=== PATIENT | male | born 1955 | race Caucasian/White ===

== ENCOUNTER → 2019-08-20 15:09 | Outpatient (CLI) | payer BC, OTHER, SELFPAY ==
[2019-08-20 16:54] LABS: Creatinine, Serum 0.88 mg/dL (0.70-1.30); EST Glomerular Filtration Rate 93 mL/min (>60); Est Glom Filt Rate - Afr Amer 113 mL/min (>60)
== END ==
PROVIDERS: Referring Provider Radiology Radiation Oncology; Visit Provider Radiology Radiation Oncology
DX: Z01.818 Encounter for other preprocedural examination (principal); C61 Malignant neoplasm of prostate
CPT/HCPCS: 36415; 82565

== ENCOUNTER → 2019-08-27 08:00 | Outpatient (CLI) | payer OTHER, BC, SELFPAY ==
[2019-08-27] VITALS (18 sets, daily range): BP systolic 116–141; BP diastolic 85–98; PULSE 83–107; RESP 14–18; O2SAT 94–104; BMI 30.1
--- NOTE | 2019-08-27 06:39 | CT_ITS ---
STUDY: CT CHEST WITH CONTRAST REASON FOR EXAM: Male, 63 years old. Elevated PSA levels. Weight loss. History of prostate carcinoma and brachytherapy. RADIATION DOSAGE (If Supplied By Facility): CTDIvol = ( 24.45 ) mGy, DLP = ( 3314.22 ) mGycm TECHNIQUE: Transaxial imaging was performed following intravenous administration of IV Isovue 300 100. Multiplanar coronal and sagittal images were reformatted. Individualized dose optimization techniques were used for this CT. COMPARISON: None. FINDINGS: Mild increased markings at the lung bases suggestive of scarring. There is no demonstrated pleural abnormality. There are calcifications of the coronary arteries. Normal mediastinum. Normal hilar regions. Normal enhanced pulmonary arteries. There is atherosclerotic calcification of the aortic arch . There are multi-level degenerative changes of the thoracic spine. Small hiatal hernia. CT/Chest WITH Contrast IMPRESSION: Mild linear scarring at the lung bases. Electronically Signed: Joshua Limon, at 9:07 EDT , Service support ,
--- NOTE | 2019-08-27 06:40 | CT_ITS ---
STUDY: CT ABDOMEN AND PELVIS WITH CONTRAST REASON FOR EXAM: Male, 63 years old. Elevated PSA levels. Weight loss. History of prostate cancer and brachytherapy. RADIATION DOSAGE (If Supplied By Facility): CTDIvol = ( 24.45 ) mGy, DLP = ( 3314.22 ) mGycm TECHNIQUE: Transaxial images were obtained from the dome of the diaphragm to the symphysis pubis with oral contrast. IV/Oral Isovue 300 100 was administered. Sagittal and coronal images were reconstructed. Individualized dose optimization techniques were used for this CT. COMPARISON: None. FINDINGS: The visualized lung bases are unremarkable. Coronary artery calcification. Normal liver. Normal gallbladder and extrahepatic biliary system. Normal spleen. Normal pancreas. Normal bilateral adrenal glands. Focal cortical scarring in the upper posterior midportion of the right kidney. There are 2 small adjacent cysts in the upper pole of the left kidney. The larger measures 1.3 cm. 1 cm cyst in the lower pole of the left kidney. Nonobstructive intrarenal calculi in the lower pole of the left kidney. The larger calculus measures 2 mm. There is a small hiatal hernia. Normal small intestine. There are scattered colonic diverticula consistent with diverticulosis. The appendix is visualized and appears normal. There is diffuse atherosclerotic calcification of the abdominal aorta, without a demonstrated aneurysm. Normal inferior vena cava. Normal retroperitoneum. Normal urinary bladder. There is enlargement of the prostate gland. Metallic densities are seen within the prostate. The prostate causes indentation at the bladder base. There is a left-sided inguinal hernia containing adipose tissue. There are degenerative changes of the visualized lumbar spine. 40% loss of height of the T8 [address]/Abdomen/Pelvis WITH Contrast IMPRESSION: Left renal cysts. Nonobstructive calculi in the lower pole of the left kidney. Focal scarring in the posterolateral aspect of the right kidney. Enlargement of the prostate with indentation at the bladder base. Electronically Signed: Joshua Limon, at 9:12 EDT , Service support ,
[2019-08-27] MEDS: Metoprolol Tartrate 5 MG/5 ML Vial IV ×4 (15:25→16:17)
[2019-08-27] MEDS: 0.9% Saline Lock 10 ML Syringe IV (16:18)
--- NOTE | 2019-08-27 16:50 | NURSING ---
sent home via wheelchair with
== END ==
PROVIDERS: Family Provider Internal Medicine; PCP Internal Medicine; Referring Provider Radiology Radiation Oncology; Visit Provider Radiology Radiation Oncology
DX: C61 Malignant neoplasm of prostate (principal); I48.91 Unspecified atrial fibrillation
CPT/HCPCS: 71260; 74177; 93005; Q9967; A4216

== ENCOUNTER → 2019-08-29 09:09 | Outpatient (CLI) | payer OTHER, BC, SELFPAY ==
[2019-08-29 08:05] VITALS: BMI 30.8
--- NOTE | 2019-08-29 09:21 | NM_ITS ---
CLINICAL: 63-year-old male with reported history of carcinoma of the prostate with elevation of the serum PSA level. WHOLE BODY 99m Tc MDP RADIONUCLIDE BONE SCINTIGRAPHY COMPARISON: CT of the chest, abdomen and pelvis reports 08/27/2019 FINDINGS: Following the intravenous administration of 27.6 mCi of 99m Tc MDP, whole body bone images reveal: 1. Increased radiopharmaceutical concentration is identified in the sternoclavicular compartment of the left shoulder, acromioclavicular compartments of both shoulders, bilateral knee articulations, lower cervical spine posteriorly on the right, ninth thoracic vertebra posteriorly on the right, right-left midfoot. 2. The remaining skeletal structures are scintigraphically unremarkable with normal-appearing renal images and urinary bladder activity identified. Enhanced uptake is defined in the bilateral mandible and midline maxilla most consistent with periodontal disease and/or periostitis. NM/Bone Scan Whole Body IMPRESSION: 1. The increase in radiopharmaceutical concentration identified in the bilateral shoulders, right and left knees, cervical and thoracic spine, mid foot bilaterally is commensurate with degenerative arthritis. 2. There is no definitive typical scintigraphic evidence of diffuse axial skeletal metastatic disease on the current examination. Electronically Signed: Chinmay Brown DO at 23:15 EDT Tel , Service support ,
[2019-08-29 10:37] LABS: AST(SGOT) 20 U/L (15-37); Alanine Aminotransfer ALT/SGPT 35 U/L (16-61); Albumin, Serum 3.8 g/dL (3.2-5.0); Alkaline Phosphatase 60 U/L (45-117); Bilirubin, Direct 0.22 mg/dL (0.00-0.30); Cholesterol 134 mg/dL (200); Globulin 3.4 g/dL (2.2-4.2); High Density Lipoprotein 47 mg/dL; Protein, Total 7.2 g/dL (6.4-8.2); Thyroid Stim Hormone (TSH) 0.68 uIU/mL (0.358-3.74); Triglycerides 84 mg/dL; Very Low Density Lipoprotein 17 mg/dL (5-40)
== END ==
PROVIDERS: Internal Medicine Cardiovascular Disease; Family Provider Internal Medicine; PCP Internal Medicine; Referring Provider Radiology Radiation Oncology; Visit Provider Radiology Radiation Oncology
DX: C61 Malignant neoplasm of prostate (principal); E78.5 Hyperlipidemia, unspecified; I48.0 Paroxysmal atrial fibrillation
CPT/HCPCS: 36415; 78306; 80061; 80076; 84443

== ENCOUNTER → 2019-09-25 06:46 | Outpatient (CLI) | payer BC, OTHER, SELFPAY ==
[2019-08-29 08:05] VITALS: BMI 30.8
--- NOTE | 2019-09-25 06:47 | ECHOCS_ITS ---
Reason For Study: ARRHYTHMIA Procedure This was a 2D Doppler, Color Flow transthoracic echocardiogram. The study was technically difficult. Contrast injection was performed. Difficult to assess valves due to heart rate. Exam performed in department. Left Ventricle Normal LV size. Left ventricular systolic function is normal. The estimated ejection fraction is 70 %. No regional wall motion abnormalities noted. Right Ventricle Normal RV size. Normal systolic function. Atria The left atrium is mildly enlarged. Normal right atrium. Mitral Valve Normal mitral valve. Tricuspid Valve Normal tricuspid valve. Trivial tricuspid valve insufficiency. Aortic Valve The aortic valve is not well visualized. Pulmonic Valve Normal pulmonic valve. Great Vessels Normal aortic root. The pulmonary artery is normal size. Normal inferior vena cava. Pericardium/Pleural No pericardial effusion. Medication Diluted definity 3.0ml given slow IV push to enhance endocardial definition. MMode/2D Measurements & Calculations LVIDd: 4.8 cm IVSd: 0.82 cm Ao root diam: 3.5 cm LVIDs: 3.2 cm LVPWd: 0.92 cm RVDd: 2.5 cm FS: 32.7 % LAV(MOD-bp): 56.2 ml LVAd ap4: 28.5 cm2 SV(MOD-sp4): 49.1 ml LAV(MOD-bp) Indexed: 26.1 ml/m2 EDV(MOD-sp4): 78.6 ml LAV(MOD-sp2): 38.2 ml EDV(sp4-el): 81.0 ml LAV(MOD-sp4): 65.8 ml LVAs ap4: 15.4 cm2 ESV(MOD-sp4): 29.5 ml ESV(sp4-el): 29.3 ml EF(MOD-sp4): 62.5 % EF(sp4-el): 63.8 % SV(sp4-el): 51.7 ml LA A4 area: 22.3 cm2 LA dimension(2D): 4.1 cm RA A4 area: 14.6 cm2 Doppler Measurements & Calculations Ao V2 max: 97.4 cm/sec LV V1 max: 98.0 cm/sec PA V2 max: 108.9 cm/sec Ao max P.8 mmHg LV V1 max P.9 mmHg TR max maren: 195.6 cm/sec TR max P.3 mmHg Interpretation Summary Normal LV size. Left ventricular systolic function is normal. The estimated ejection fraction is 70 %. The left atrium is mildly enlarged. Contrast injection was performed. Ordering Physician: Leo Roper Referring Physician: Leo Roper Performed By: Kary Juarez, RUDDYCS, RVT
--- NOTE | 2019-09-25 17:11 | STRESSREP ---
Stress Test Report Exercise myocardial perfusion stress test. 64-year-old man with a history of atrial fibrillation, hypertension, hyperlipidemia. Medications: Apixaban, aspirin, atorvastatin, lisinopril, metoprolol. Stress protocol: Resting EKG demonstrates atrial for ablation with a rate of 116 bpm normal intervals are noted. The patient was initially planned to have an exercise stress test however due to his heart rate a pharmacologic stress test was performed. 0.4 mg of regadenoson was infused per usual protocol the maximum heart rate attained was 166 bpm which was 105% of maximum predicted heart rate the maximum workload was 1 metabolic equivalent. The patient maintained atrial fibrillation throughout the recording. At rest there were nonspecific ST-T wave changes noted with no meet the criteria for ischemia at peak infusion nonspecific ST-T wave changes were noted. The resting blood pressures 126/90 with a final blood pressure 108/78. No clinical angina was noted. Myocardial perfusion protocol. 15.0 mCi of technetium 99m sestamibi was injected at rest. 0.4 mg of adenosine was infused per usual protocol peak infusion 45.0 mCi of technetium 99m sestamibi was injected stress images were obtained stress and rest images were reconstructed and compared in the short axis vertical and horizontal long axis. Gated images was obtained Perfusion SPECT analysis: View of the stress images demonstrate normal uptake of tracer noted in all areas of the myocardium. The resting images similarly demonstrate normal uptake of tracer noted in all areas of myocardium. No areas of reversibility are noted suggest ischemia no previous infarct is noted. Gated SPECT analysis: The gated ejection fraction is noted to be 60%. Conclusion: Normal pharmacologic myocardial perfusion stress test. Preserved ejection fraction.
== END ==
PROVIDERS: Family Provider Internal Medicine; PCP Internal Medicine; Referring Provider Internal Medicine Cardiovascular Disease; Visit Provider Internal Medicine Cardiovascular Disease
DX: I48.0 Paroxysmal atrial fibrillation (principal); I10 Essential (primary) hypertension; I25.10 Atherosclerotic heart disease of native coronary artery without angina pectoris
CPT/HCPCS: 78452; 93017; 93306; A9500; Q9957; A4216; C8929; J2785

== ENCOUNTER → 2019-10-09 11:00 | Outpatient (CLI) | payer BC, OTHER, SELFPAY ==
[2019-10-09 08:39] VITALS: BMI 31.5
[2019-10-09 11:33] LABS: Absolute Lymphocyte Count 2.04 X10^3/uL (0.83-4.51); Absolute Neutrophil Count 4.5 X10^3/uL (2.0-7.7); Basophil# 0.08 X10^3/uL; Eosinophil# 0.23 X10^3/uL; Eosinophils% 2.9 % (0-5); Hematocrit 52.4 % (40-54); Lymphocyte # 2.04 X10^3/ul (4.0); Lymphocyte % 26.1 % (19-41); Mean Corp Hgb Conc 34.4 g/dL (32-36); Mean Corpuscular Hgb 32.2 pg (27.0-32.0); Mean Corpuscular Volume 93.7 fL (80-94); Mean Platelet Vol. 9.7 fl (6.2-12.0); Monocyte# 0.85 X10^3/uL; Monocyte% 10.9 % (0-10); NRBC Flagged by Analyzer 0 % (0-5); Neutrophil # 4.51 X10^3/uL (2.7-7.7); Neutrophil % 57.7 % (47-70); Platelet Count 256 K/mm3 (150-450); RBC Distribution Width CV 12.1 % (11.6-14.6); RBC Distribution Width SD 41.9 fl (35.1-43.9); Red Blood Count 5.59 M/mm3 (4.6-6.2); White Blood Count 7.8 K/mm3 (4.4-11.0)
[2019-10-10 09:14] LABS: Pathologist Review Reviewed
== END ==
PROVIDERS: Family Provider Internal Medicine; PCP Internal Medicine; Referring Provider Internal Medicine Cardiovascular Disease; Visit Provider Internal Medicine Cardiovascular Disease
DX: I48.0 Paroxysmal atrial fibrillation (principal)
CPT/HCPCS: 36415; 85025

== ENCOUNTER 2019-10-15 09:08 | Day surgery (SDC) | payer BC, OTHER, SELFPAY ==
[2019-10-09 08:39] VITALS: BMI 31.5
[2019-10-14 13:32] VITALS: BMI 31.5
[2019-10-15 09:42] LABS: Anion Gap 6 (5-15); BUN 23 mg/dL (7-18); BUN/Creat Ratio 23.3 RATIO (10-20); Chloride 103 mmol/L (98-107); Creatinine, Serum 0.99 mg/dL (0.70-1.30); EST Glomerular Filtration Rate 81 mL/min (>60); Est Glom Filt Rate - Afr Amer 99 mL/min (>60); Estimated Creatinine Clearance 78.86 ml/min; Glucose 145 mg/dL (74-106); Potassium 4.2 mmol/L (3.5-5.1); Sodium Level 135 mmol/L (136-145)
--- NOTE | 2019-10-15 13:16 | CARDIOVERS ---
Cardioversion Cardioversion: DC cardioversion 64-year-old man with a history of persistent atrial fibrillation symptomatic. The patient was brought to the cardiac catheterization lab in the postabsorptive nonsedated state. The patient was seen by Dr. Che of the critical care division. Informed consent was obtained. Anterior-posterior pads were applied. EKG confirmed atrial fibrillation. The patient was administered 100 mg of intravenous propofol and 200 J of synchronized DC cardioversion energy were applied with prompt reversal to sinus rhythm. Patient tolerated the procedure well. Conclusion: Successful DC cardioversion to sinus rhythm from atrial fibrillation. Continue current medical therapy.
--- NOTE | 2019-10-15 14:08 | PCM.OP.PRO ---
Procedure Report Date of Procedure: 10/15/19 CONSCIOUS SEDATION REPORT DATE OF SERVICE: October 15, 2019 BRIEF HISTORY OF PRESENT ILLNESS: The patient is a 64-year-old male who presented to [facility] for elective outpatient cardioversion due to underlying atrial fibrillation. The patient is currently anticoagulated on Eliquis. His last surface echocardiogram revealed an ejection fraction of approximately 70%. The patient is a previous smoker but is never been diagnosed with COPD or asthma. He denies a known history of obstructive sleep apnea. The patient denies any previous anesthetic complications. PHYSICAL EXAMINATION: VITAL SIGNS: Reviewed and were acceptable. GENERAL: The patient is a male, in no apparent distress, speaking in full sentences. HEENT: Normocephalic, atraumatic. Mucous membranes are moist and pink. Good mouth opening noted. Trachea is midline. CHEST: S1, S2 irregularly irregular. No murmurs, rubs or gallops were noted. LUNGS: Clear to auscultation bilaterally without appreciable wheezes, rales or rhonchi. ABDOMEN: Soft, nontender, nondistended. Positive bowel sounds. EXTREMITIES: There is no clubbing, cyanosis or edema. ASA Class: II DESCRIPTION OF PROCEDURE: After confirmation of informed consent, the patient's anesthesia plan was reviewed in detail. Propofol was chosen. Risks and benefits were reviewed and the patient agreed to proceed. At 1258, the patient was given his first bolus of propofol. In total, the patient required 100 mg of propofol to achieve an appropriate level of sedation, after which time, the patient was given a 200 joule synchronized cardioversion by Dr. Roper at the bedside. This was successful in achieving normal sinus rhythm. The patient was monitored until 1312, at which time he reached his baseline mental status and function. The patient tolerated the procedure well. COMPLICATIONS: None ESTIMATED BLOOD LOSS: None RECOMMENDATIONS: Okay to recover in usual fashion. Code Visit 9xxxx: Other Procedure See Report - [id number]
== END 2019-10-15 14:10 | disposition home or self-care (01) ==
LOC: CLSP 09:10
PROVIDERS: Family Provider Internal Medicine; PCP Internal Medicine; Referring Provider Internal Medicine Cardiovascular Disease; Visit Provider Internal Medicine Cardiovascular Disease
DX: I48.0 Paroxysmal atrial fibrillation (principal); I10 Essential (primary) hypertension; E78.5 Hyperlipidemia, unspecified; E11.9 Type 2 diabetes mellitus without complications; E66.9 Obesity, unspecified; Z68.31 Body mass index [BMI] 31.0-31.9, adult; Z85.46 Personal history of malignant neoplasm of prostate; Z87.442 Personal history of urinary calculi; Z79.01 Long term (current) use of anticoagulants; Z79.84 Long term (current) use of oral hypoglycemic drugs; Z79.899 Other long term (current) drug therapy; Z87.891 Personal history of nicotine dependence
CPT/HCPCS: 36415; 80048; 92960; 93005; J7040

== ENCOUNTER → 2019-11-01 08:34 | Outpatient (CLI) | payer BC, OTHER, SELFPAY ==
[2019-10-16 14:22] VITALS: BMI 32.7
--- NOTE | 2019-10-31 | IMM_PTH ---
PATIENT: MAMTA RIVERA LOC: [facility] U#:[id number] AGE/SX: 70/M ROOM: RE11/01/[address]: Dr. Donald Hong MD : 1955 BED: DIS: SPEC #: [id number] RECD: 11/04/19 12:01 STATUS: HAYLEY REMassiel #: [id number] TIERRA: 10/31/19 00:[address]: Donald Hong DEPT: IMMUNOHISTOCHEMISTRY RECD BY: Sonya Plaza ENTERED: 11/04/19 12:03 SP TYPE: IMMUNO OTHR DR: Dr. Kay Tyler MD Tissues: PROSTATE BIOPSY Procedures: CK8 (initial) CK8 (add) 34BE12 (add) P40 (add) PHYSICIAN & INSTITUTION [place] [id number] SPECIMEN INFORMATION: Tissue Source: A. Right apex, B. Right mid, C. Right base, D. Left apex Clinical Info: Prostate cancer Specimen Number: [id number] A, B, C, D CPT code: 77068, 42016 x11 METHODOLOGY: Deparaffinized sections of prefer/formalin-fixed tissue or PAP/DQ stained slides are incubated with monoclonal/polyclonal antibodies/oligonucleotide probes. Localization is made via biotin free immunoperoxidase method. Appropriate controls are performed and reacted as expected. Results on target cell population are indicated in the following table: RESULTS: ANTIBODY / CLONE RESULT Block A CK8 ([id number]) positive 34BE12 (34BE12) negative P40 (BC28) negative Block B CK8 (21ishuA75) positive 34BE12 (34BE12) positive P40 (BC28) positive Block C CK8 (55ishxN09) positive 34BE12 (34BE12) positive P40 (BC28) positive Block D CK8 (26sewuC15) positive 34BE12 (34BE12) positive P40 (BC28) positive These tests were developed and their performance characteristics determined by [facility]. They may not have been cleared or approved by the U.S. Food and Drug Administration. The FDA has determined that such clearance or approval is not necessary. The above immunohistochemical/dualISH markers are ordered and reviewed by the Pathologist. INTERPRETATION: A. Prostate, right apex, core biopsy: Adenocarcinoma B. Prostate, right mid, core biopsy: Negative for adenocarcinoma C. Prostate, right base, core biopsy; Negative for adenocarcinoma D. Prostate, left apex, core biopsy: Negative for adenocarcinoma Case has been reviewed in consultation with Dr. Woody who concurs with the above diagnosis. IDC:[email or web address] SJ:cc 11/06/19
--- NOTE | 2019-10-31 08:30 | PROSBIL_PTH ---
PATIENT: MAMTA RIVERA LOC: [facility] U#:[id number] AGE/SX: 70/M ROOM: RE11/01/[address]: Dr. Donald Hong MD : 1955 BED: DIS: SPEC #: [id number] RECD: 10/31/19 17:35 STATUS: [facility] NICOLE #: [id number] TIERRA: 10/31/19 08:[address]: Donlad Hong DEPT: SURGICAL PATHOLOGY RECD BY: Sonya Plaza ENTERED: 11/01/19 09:39 SP TYPE: PROST BX SAMEER DR: Dr. Kay Tyler MD Tissues: A - PROSTATE RIGHT B - PROSTATE RIGHT C - PROSTATE RIGHT D - PROSTATE LEFT E - PROSTATE LEFT F - PROSTATE LEFT Procedures: PROSTATE BX HEADER OPERATION: Prostate biopsy PRE-OP DIAGNOSIS: Prostate cancer TISSUE SUBMITTED: A-Right apex, B-Right mid, C-Right base, D-Left apex, E-Left mid, F-Left base MICROSCOPIC DIAGNOSIS A. Right prostate, apex, core biopsy: Prostatic adenocarcinoma, Jen grade: See comment. Number of core involved: 2/2. Proportion of tissue involved : 20%. Perineural invasion: not identified. Greatest tumor length: 0.4 cm. Focal calcification. See Comment. B. Right prostate, mid, core biopsy: Prostatic tissue, negative for adenocarcinoma. Focal chronic inflammation and calcification. See comment. C. Right prostate, base, core biopsy: Prostatic tissue, negative for adenocarcinoma. See comment.. D. Left prostate, apex, core biopsy: Prostatic tissue, negative for adenocarcinoma. See comment. E. Left prostate, mid, core biopsy: Prostatic adenocarcinoma. Jen grade 7 (4+3) Number of core involved: 2/2 Proportion of tissue involved: about 75%. Perineural invasion: present. Greatest tumor length: 0.7 cm. F. Left prostate, base, core biopsy: Prostatic adenocarcinoma. Jen grade: 7 (4+3) Number of core involved: 2/2 Proportion of tissue involved: about 75% Perineural invasion - present. Greatest tumor length: 0.8 cm MARY:yoselin 11/04/19 COMMENT A, B, C & D: Immunohistochemistry ([id number]) supports the above diagnosis. A. Tumor consists of scant malignant glands. Extensive fibrosis is noted may represent therapy-related changes. B & C. Extensive fibrosis is noted may represent therapy related changes. Please make reference to previous specimen [id number], right prostate needle core biopsy, diagnosis of atypical small acinar proliferation left prostate, and left prostate, needle core biopsy, diagnosis of adenocarcinoma. Case has been reviewed in consultation with Dr. Woody who concurs with the above diagnosis. IDC:AM MICROSCOPIC DESCRIPTION Slides are reviewed. GROSS DESCRIPTION A - Received is one container designated prostate, right apex. The specimen consists of two elongated fragments of light rgaham-white soft tissue each measuring 1 cm in length and 0.1 cm in diameter. The specimen is totally submitted in one cassette. B - Received is one container designated prostate, right mid. The specimen consists of two elongated fragments of light graham-white soft tissue each measuring 1.5 cm in length and 0.1 cm in diameter. The specimen is totally submitted in one cassette. C - Received is one container designated prostate, right base. The specimen consists of two elongated fragments of light graham-white soft tissue each measuring 2 cm in length and 0.1 cm in diameter. The specimen is totally submitted in one cassette. D - Received is one container designated prostate, left apex. The specimen consists of two elongated fragments of light graham-white soft tissue each measuring 1 cm in length and 0.1 cm in diameter. The specimen is totally submitted in one cassette. E - Received is one container designated prostate, left mid. The specimen consists of two elongated fragments of light graham-white soft tissue each measuring 1.5 cm in length and 0.1 cm in diameter. The specimen is totally submitted in one cassette. F - Received is one container designated prostate, left base. The specimen consists of two elongated fragments of light graham-white soft tissue each measuring 1.5 cm in length and 0.1 cm in diameter. The specimen is totally submitted in one cassette. / AM:sp 11/01/19 TC: 0 [facility]: [id number] x6 ADDENDUM ADDENDUM ADDENDUM ADDENDUM ADDENDUM ADDENDUM ADDENDUM ADDENDUM ADDENDUM ADDENDUM ADDENDUM ADDENDUM ADDENDUM ADDENDUM ADDENDUM ADDENDUM ADDENDUM ADDENDUM ADDENDUM ADDENDUM ADDENDUM ADDENDUM ADDENDUM ADDENDUM ADDENDUM ADDENDUM ADDENDUM ADDENDUM ADDENDUM ADDENDUM ADDENDUM ADDENDUM 12/09/2019 10:05 ADDENDUM 12/09/2019 10:05 ADDENDUM 12/09/2019 10:05 ADDENDUM 12/09/2019 10:05 ADDENDUM 12/09/2019 10:05 This addendum is added to incorporate an outside pathology consultation report. The case was examined at [facility] (#[id number]) and the following diagnosis was rendered. A. Right prostate, apex, core biopsy: Adenocarcinoma of the prostate, Jen score 3+4=7 (Grade Group 2), involving two of two cores (15%, 1.5 mm and 40%, 4 mm). [place] pattern 4 comprises 5% of the tumor. Background prostatic tissue with radiation therapy effect. B. Right prostate, mid, core biopsy: Benign prostatic tissue with radiation therapy effect. C. Right prostate, base, core biopsy: Small focus of atypical glands. Background prostatic tissue with radiation therapy effect. D. Left prostate, apex, core biopsy: Benign prostatic tissue with radiation therapy effect. E. Left prostate, mid, core biopsy: Adenocarcinoma of the prostate, [place] score 3+4=7 (Grade Group 2), involving two of two cores (30%, 4.5 mm and 25%, 2.5 mm). Jen pattern 4 comprises 40% of the tumor. Perineural invasion is identified. Background prostatic tissue with radiation therapy effect. F. Left prostate, base, core biopsy: Adenocarcinoma of the prostate, [place] score 3+4=7 (Grade Group 2), involving two of two cores (75%, 7 mm and 75%, 6 mm). Jen pattern 4 comprises 40% of the tumor. Perineural invasion is identified. Background prostatic tissue with radiation therapy effect. Please see complete above mentioned consultation report in EMR
== END ==
PROVIDERS: Family Provider Internal Medicine; PCP Internal Medicine; Referring Provider Urology; Visit Provider Urology
DX: C61 Malignant neoplasm of prostate (principal)
CPT/HCPCS: 88305; 88341; 88342; G0416

== ENCOUNTER 2019-11-25 11:06 | Day surgery (SDC) | payer BC, OTHER, SELFPAY ==
[2019-11-12 11:18] VITALS: BMI 33.3
[2019-11-14 17:52] LABS: Anion Gap 7 (5-15); BUN 19 mg/dL (7-18); BUN/Creat Ratio 15.4 RATIO (10-20); Calcium,Total 9.7 mg/dL (8.5-10.1); Chloride 105 mmol/L (98-107); Creatinine, Serum 1.23 mg/dL (0.70-1.30); EST Glomerular Filtration Rate 63 mL/min (>60); Est Glom Filt Rate - Afr Amer 76 mL/min (>60); Glucose 122 mg/dL (74-106); Potassium 3.9 mmol/L (3.5-5.1); Sodium Level 141 mmol/L (136-145)
[2019-11-22 13:09] VITALS: BMI 33.3
--- NOTE | 2019-11-25 12:28 | CARDIOVERS ---
Cardioversion Cardioversion: DC cardioversion. 64-year-old man with a history of persistent atrial fibrillation. The patient was brought into the cardiac catheterization lab in the postabsorptive nonsedated state. Informed consent was obtained. The patient was seen by Dr. Che of the critical care division. Anterior-posterior pads were applied. 100 mg of intravenous propofol was then administered and then 200 J of synchronized DC cardioversion energy were applied with prompt reversal to sinus rhythm. Patient tolerated the procedure well. Conclusion: Successful DC cardioversion from atrial fibrillation to sinus rhythm. Continue current medical therapy Follow-up in the heart group office.
--- NOTE | 2019-11-25 12:35 | PCM.OP.PRO ---
Procedure Report Date of Procedure: 11/25/19 CONSCIOUS SEDATION REPORT DATE OF SERVICE: November 25, 2019 BRIEF HISTORY OF PRESENT ILLNESS: The patient is a 64-year-old male who presented to [facility] for elective outpatient cardioversion due to underlying atrial fibrillation. The patient is currently anticoagulated on Eliquis. His last surface echocardiogram revealed an ejection fraction of approximately 70%. The patient is a previous smoker but is never been diagnosed with COPD or asthma. He denies a known history of obstructive sleep apnea. The patient denies any previous anesthetic complications. The patient did undergo a previous cardioversion in September 2019, during which time, he did require 100 mg of propofol to achieve an appropriate level of sedation. PHYSICAL EXAMINATION: VITAL SIGNS: Reviewed and were acceptable. GENERAL: The patient is a male, in no apparent distress, speaking in full sentences. HEENT: Normocephalic, atraumatic. Mucous membranes are moist and pink. Good mouth opening noted. Trachea is midline. MP III CHEST: S1, S2 irregularly irregular. No murmurs, rubs or gallops were noted. LUNGS: Clear to auscultation bilaterally without appreciable wheezes, rales or rhonchi. ABDOMEN: Soft, nontender, nondistended. Positive bowel sounds. EXTREMITIES: There is no clubbing, cyanosis or edema. ASA Class: II DESCRIPTION OF PROCEDURE: After confirmation of informed consent, the patient's anesthesia plan was reviewed in detail. Propofol was chosen. Risks and benefits were reviewed and the patient agreed to proceed. At 1221, the patient was given his first bolus of propofol. In total, the patient required 100 mg of propofol to achieve an appropriate level of sedation, after which time, the patient was given a 200 joule synchronized cardioversion by Dr. Roper at the bedside. This was successful in achieving normal sinus rhythm. The patient was monitored until 1232, at which time he reached his baseline mental status and function. The patient tolerated the procedure well. COMPLICATIONS: None ESTIMATED BLOOD LOSS: None RECOMMENDATIONS: Okay to recover in usual fashion. Code Visit 9xxxx: Other Procedure See Report - [id number]
== END 2019-11-25 13:24 | disposition home or self-care (01) ==
PROVIDERS: Nurse Practitioner Family; Family Provider Internal Medicine; PCP Internal Medicine; Referring Provider Internal Medicine Cardiovascular Disease; Visit Provider Internal Medicine Cardiovascular Disease
DX: I48.19 Other persistent atrial fibrillation (principal); E11.9 Type 2 diabetes mellitus without complications; I10 Essential (primary) hypertension; E78.5 Hyperlipidemia, unspecified; G47.10 Hypersomnia, unspecified; Z79.01 Long term (current) use of anticoagulants; Z79.84 Long term (current) use of oral hypoglycemic drugs; Z79.899 Other long term (current) drug therapy; Z87.891 Personal history of nicotine dependence
CPT/HCPCS: 36415; 80048; 92960; 93005; J7040

== ENCOUNTER → 2019-12-05 06:18 | Outpatient (CLI) | payer BC, OTHER, SELFPAY ==
[2019-11-22 13:09] VITALS: BMI 33.3
[2019-12-03 10:35] VITALS: BMI 33.3
--- NOTE | 2019-12-05 06:32 | MRI_ITS ---
STUDY: MR PELVIS WITH AND WITHOUT CONTRAST (PROSTATE) REASON FOR EXAM: Male, 64 years old. prostate ca, hx radiation seeds implanted 6 years ago, new biopsy 2 wks ago TECHNIQUE: Standardized multiparametric prostate MRI with T1, T2, DWI/ADC sequences were obtained in 3 orthogonal planes, and dynamic contrast enhancement sequences. 20 ml of Dotarem contrast material was administered intravenously for the contrast portion of the examination. COMPARISON: None. FINDINGS: The prostate volume measures 71 mm3. The contours of the prostate gland are lobulated. There is mass effect on the bladder base. Metallic prostate implants identified causing expected artifact, degrading sensitivity of exam. The transition zone is heterogenous. PI-RADS DWI score 3 - Focal mildly hypointense on ADC and isointense/mildly hyperintense on high b-value DWI. (Image 16 series 901; image 45 series 9) PI-RADS T2W score 3 - Heterogeneous signal intensity with obscured margins (image 15 series 6, 9 mm right posterior transitional zone, base). Contrast enhancement (+) Focal, earlier or contemporaneous with enhancement of adjacent normal prostatic tissues, and corresponding to a suspicious finding on T2WI and/or DWI. The peripheral zone is heterogenous. PI-RADS DWI score 2 - Linear/wedge shaped hypointense on ADC and/or linear/wedge shaped hyperintense on high b-value DWI. PI-RADS T2W score 2 - Linear, wedge-shaped, or diffuse mild hypointensity, usually with indistinct margin. Contrast enhancement no early or contemporaneous enhancement; or diffuse multifocal enhancement NOT corresponding to a focal finding on T2W and/or DWI or focal enhancement responding to a lesion demonstrating features of BPH onT2WI (including features of extruded BPH in the PZ). The seminal vesicles demonstrate normal margins and T2 signal pattern. No mass lesion or invasion depicted. The rectoprostatic angles are normal. Although the urinary bladder is not well-distended, there appears to be circumferential wall thickening of the urinary bladder with trabecular mucosal features. The vascular structures of the are normal. The visualized hollow viscus structures are normal. No bone marrow edema or mass lesion depicted. MRI/Pelvis W/WO Contrast IMPRESSION: 1. PIRADS v2.1 2019 -- 3 - Intermediate (clinically significant cancer is equivocal). Sensitivity of exam diminished by presence of prostate radiation seeds. Ill-defined area of diminished T2 signal intensity in the right posterior transitional zone (base) with low level restricted diffusion and minimal, but focal, enhancement. May represent sequela of recent biopsy or localized prostatitis, however, a small neoplasm cannot be excluded. 2. No pelvic/iliac chain or inguinal adenopathy. No bone marrow edema. 3. Probable bladder wall thickening with trabeculation suggesting sequela of bladder outlet obstruction. Electronically Signed: Philip Ochoa MD ([facility]) at 11:52 EST , Service support ,
== END ==
PROVIDERS: Family Provider Internal Medicine; PCP Internal Medicine
DX: C61 Malignant neoplasm of prostate (principal)
CPT/HCPCS: 72197; A9575

== ENCOUNTER → 2020-02-14 19:49 | Outpatient (CLI) | payer BC, OTHER, SELFPAY ==
[2020-01-31 08:55] VITALS: BMI 33.6
== END ==
PROVIDERS: PCP Internal Medicine; Referring Provider Internal Medicine Critical Care Medicine; Visit Provider Internal Medicine Critical Care Medicine
DX: G47.33 Obstructive sleep apnea (adult) (pediatric) (principal)
CPT/HCPCS: 95811

== ENCOUNTER → 2020-03-10 09:00 | Outpatient (CLI) | payer BC, OTHER, SELFPAY ==
[2020-02-19 08:51] VITALS: BMI 34.4
== END ==
PROVIDERS: PCP Internal Medicine; Referring Provider Nurse Practitioner Acute Care; Visit Provider Nurse Practitioner Acute Care
DX: Z46.89 Encounter for fitting and adjustment of other specified devices (principal)

== ENCOUNTER → 2020-03-11 09:20 | Outpatient (CLI) | payer BC, OTHER, SELFPAY ==
[2020-02-19 08:51] VITALS: BMI 34.4
== END ==
PROVIDERS: PCP Internal Medicine; Referring Provider Nurse Practitioner Acute Care; Visit Provider Nurse Practitioner Acute Care
DX: Z00.00 Encounter for general adult medical examination without abnormal findings (principal)

== ENCOUNTER → 2020-06-04 09:39 | Outpatient (CLI) | payer OTHER, SELFPAY ==
[2020-06-02 09:31] VITALS: BMI 33.4
--- NOTE | 2020-06-04 09:41 | CT_ITS ---
STUDY: CT CHEST WITHOUT CONTRAST REASON FOR EXAM: Male, 64 years old. LEFT LOWER LOBE LUNG NODULE SEEN ON PRE-OP SCAN FROM [facility], HEART ABLATION 05/28/20 WITH LOOP RECORDER PLACEMENT RADIATION DOSAGE (If Supplied By Facility): CTDIvol = ( 18.59 ) mGy, DLP = ( 710.72 ) mGycm TECHNIQUE: Transaxial imaging was performed without the administration of intravenous contrast material. Multiplanar coronal and sagittal images were reformatted. Individualized dose optimization techniques were used for this CT. COMPARISON: None. FINDINGS: There is a 1.2 cm x 0.9 cm pleural-based nodule in the posterior medial segment of the right lower lobe as seen on axial image #79. This was not seen on prior examination. This may represent a focal area of the scarring. A follow-up CT scan in 6 months is recommended for further evaluation. There is a 1 cm bulla in the left lower lobe. Minimal scarring in the posterior aspect of the lingula segment of the left upper lobe as well as linear scarring in the posterior medial segment of the left lower lobe. There is no demonstrated pleural abnormality. There are calcifications of the coronary arteries. There are multiple small lymph nodes within the mediastinum, which are normal in size and morphology most compatible with reactive lymph hyperplasia. Normal hilar regions. Normal unenhanced pulmonary arteries. There is atherosclerotic calcification of the aortic arch . There are multi-level degenerative changes of the thoracic spine. There is no demonstrated abnormality of the visualized upper abdomen. CT/Chest without Contrast IMPRESSION: 1.2 cm x 0.9 sign of pleural based nodule in the posterior medial segment of the right lower lobe. This may represent a focal scarring. A follow-up CT scan in 6 months is recommended for further evaluation. The remainder of the examination is unchanged. Electronically Signed: Joshua Limon, at 13:44 EDT , Service support ,
== END ==
PROVIDERS: PCP Internal Medicine; Referring Provider Internal Medicine Critical Care Medicine; Visit Provider Internal Medicine Critical Care Medicine
DX: R91.1 Solitary pulmonary nodule (principal)
CPT/HCPCS: 71250

== ENCOUNTER → 2020-06-08 23:42 | Outpatient (CLI) | payer OTHER, BC, SELFPAY ==
[2020-06-02 09:31] VITALS: BMI 33.4
== END ==
PROVIDERS: PCP Internal Medicine; Visit Provider Internal Medicine Critical Care Medicine
DX: G47.30 Sleep apnea, unspecified (principal)
CPT/HCPCS: 95811

== ENCOUNTER → 2020-06-22 09:00 | Outpatient (CLI) | payer BC, OTHER, SELFPAY ==
[2020-06-02 09:31] VITALS: BMI 33.4
== END ==
PROVIDERS: PCP Internal Medicine; Visit Provider Nurse Practitioner Acute Care
DX: Z46.89 Encounter for fitting and adjustment of other specified devices (principal)

== ENCOUNTER → 2020-06-23 06:57 | Outpatient (CLI) | payer BC, OTHER, SELFPAY ==
[2020-06-02 09:31] VITALS: BMI 33.4
== END ==
PROVIDERS: PCP Internal Medicine; Visit Provider Nurse Practitioner Acute Care
DX: Z00.00 Encounter for general adult medical examination without abnormal findings (principal)

== ENCOUNTER → 2020-09-16 10:01 | Outpatient (CLI) | payer BC, SELFPAY ==
[2020-07-30 06:45] VITALS: BMI 33.0
[2020-09-16 11:14] LABS: AST(SGOT) 93 U/L (15-37); Alanine Aminotransfer ALT/SGPT 119 U/L (16-61); Albumin, Serum 3.9 g/dL (3.2-5.0); Alkaline Phosphatase 53 U/L (45-117); Anion Gap 10 (5-15); BUN 15 mg/dL (7-18); BUN/Creat Ratio 18.1 RATIO (10-20); Chloride 103 mmol/L (98-107); Cholesterol 129 mg/dL (200); Creatinine, Serum 0.83 mg/dL (0.70-1.30); EST Glomerular Filtration Rate 100 mL/min (>60); Est Glom Filt Rate - Afr Amer 121 mL/min (>60); Globulin 3.9 g/dL (2.2-4.2); Glucose 160 mg/dL (74-106); High Density Lipoprotein 47 mg/dL; Potassium 3.8 mmol/L (3.5-5.1); Protein, Total 7.8 g/dL (6.4-8.2); Sodium Level 136 mmol/L (136-145); Triglycerides 141 mg/dL; Very Low Density Lipoprotein 28 mg/dL (5-40)
[2020-09-16 11:22] LABS: Hemoglobin A1c 6.8 % (3.8-5.6)
== END ==
PROVIDERS: PCP Internal Medicine; Referring Provider Urology; Visit Provider Urology
DX: C61 Malignant neoplasm of prostate (principal); I48.91 Unspecified atrial fibrillation; R94.5 Abnormal results of liver function studies; E11.59 Type 2 diabetes mellitus with other circulatory complications; E78.1 Pure hyperglyceridemia; E78.2 Mixed hyperlipidemia
CPT/HCPCS: 36415; 80053; 80061; 83036; 84153

== ENCOUNTER → 2020-10-07 07:01 | Outpatient (CLI) | payer BC, SELFPAY ==
[2020-09-24 12:03] VITALS: BMI 33.4
--- NOTE | 2020-10-07 07:02 | CT_ITS ---
STUDY: CT CHEST WITHOUT CONTRAST REASON FOR EXAM: Male, 65 years old. F/U NODULE RLL. Hx of prostate cancer, diabetes, HTN and cardiac ablation with internal monitor RADIATION DOSAGE (If Supplied By Facility): CTDIvol = ( 17.34 ) mGy, DLP = ( 654.29 ) mGycm TECHNIQUE: Transaxial imaging was performed without the administration of intravenous contrast material. Multiplanar coronal and sagittal images were reformatted. Individualized dose optimization techniques were used for this CT. COMPARISON: Comparison is made with prior study dated 06/04/2020. FINDINGS: The previously seen pleural-based nodule in the posterior medial segment of the right lower lobe is not seen at this time. Stable 1 cm bulla in the left lower lobe. Minimal scarring in the anterior lateral portion of the lingula. There is no demonstrated pleural abnormality. There are calcifications of the coronary arteries. There are multiple small lymph nodes within the mediastinum, which are normal in size and morphology most compatible with reactive lymph hyperplasia. Normal hilar regions. Normal unenhanced pulmonary arteries. There is atherosclerotic calcification of the aortic arch . There are multi-level degenerative changes of the thoracic spine. Diffuse fatty infiltration of the liver. CT/Chest without Contrast IMPRESSION: The previously seen pleural-based nodule in the posterior medial segment of the right lower lobe is not seen at this time. Electronically Signed: Joshua Limon, at 8:54 EST , Service support ,
== END ==
PROVIDERS: PCP Internal Medicine; Referring Provider Internal Medicine Critical Care Medicine; Visit Provider Internal Medicine Critical Care Medicine
DX: R91.1 Solitary pulmonary nodule (principal)
CPT/HCPCS: 71250

== ENCOUNTER → 2021-01-11 | Outpatient (CLI) | payer BC, SELFPAY ==
[2020-11-05 10:58] VITALS: BMI 33.3
== END | disposition home or self-care (01) ==
LOC: LABSPEC 12:32
PROVIDERS: PCP Internal Medicine; Referring Provider Urology; Visit Provider Urology
DX: R35.0 Frequency of micturition (principal)
CPT/HCPCS: 87077; 87086; 87088; 87186

== ENCOUNTER → 2021-02-15 16:57 | Outpatient (CLI) | payer BC, SELFPAY ==
[2020-11-05 10:58] VITALS: BMI 33.3
== END ==
PROVIDERS: PCP Internal Medicine; Referring Provider Nurse Practitioner Adult Health; Visit Provider Nurse Practitioner Adult Health
DX: R30.0 Dysuria (principal)
CPT/HCPCS: 87077; 87086; 87088; 87186

== ENCOUNTER → 2021-03-16 09:38 | Outpatient (CLI) | payer BC, SELFPAY ==
[2020-11-05 10:58] VITALS: BMI 33.3
[2021-03-16 11:04] LABS: ALB/GLOB Ratio 0.8 RATIO (0.9-2.4); AST(SGOT) 37 U/L (15-37); Alanine Aminotransfer ALT/SGPT 45 U/L (16-61); Albumin, Serum 3.6 g/dL (3.2-5.0); Alkaline Phosphatase 61 U/L (45-117); Anion Gap 8 (5-15); BUN 17 mg/dL (7-18); BUN/Creat Ratio 18.9 RATIO (10-20); Bilirubin, Direct 0.21 mg/dL (0.00-0.30); Calcium,Total 9.3 mg/dL (8.5-10.1); Chloride 98 mmol/L (98-107); Cholesterol 134 mg/dL (200); EST Glomerular Filtration Rate 90 mL/min (>60); Est Glom Filt Rate - Afr Amer 109 mL/min (>60); Globulin 4.3 g/dL (2.2-4.2); Glucose 330 mg/dL (74-106); High Density Lipoprotein 39 mg/dL; Potassium 3.9 mmol/L (3.5-5.1); Protein, Total 7.9 g/dL (6.4-8.2); Sodium Level 132 mmol/L (136-145); Triglycerides 210 mg/dL; Very Low Density Lipoprotein 42 mg/dL (5-40)
[2021-03-16 11:28] LABS: Hemoglobin A1c 9.3 % (3.8-5.6)
== END ==
PROVIDERS: Internal Medicine Cardiovascular Disease; PCP Internal Medicine; Referring Provider Internal Medicine; Visit Provider Internal Medicine
DX: C61 Malignant neoplasm of prostate (principal); E78.1 Pure hyperglyceridemia; E78.2 Mixed hyperlipidemia; E11.69 Type 2 diabetes mellitus with other specified complication
CPT/HCPCS: 36415; 80053; 80061; 82043; 82248; 83036; 84153

== ENCOUNTER → 2021-04-08 09:45 | Outpatient (CLI) | payer BC, SELFPAY ==
[2021-03-25 09:16] VITALS: BMI 32.7
--- NOTE | 2021-04-08 10:05 | CT_ITS ---
STUDY: CT ABDOMEN AND PELVIS WITHOUT CONTRAST REASON FOR EXAM: Male, 65 years old. GROSS HEMATURIA,CALCULUS OF KIDNEY,OTHER CHRONIC CYSTITIS W/MONICA RADIATION DOSAGE (If Supplied By Facility): CTDIvol = ( 19.18 ) mGy, DLP = ( 1164.60 ) mGycm TECHNIQUE: Transaxial images were obtained from the dome of the diaphragm to the symphysis pubis without oral contrast, and without intravenous contrast. Sagittal and coronal images were reconstructed. Individualized dose optimization techniques were used for this CT. COMPARISON: Comparison is made with prior study 08/27/2019. FINDINGS: The visualized lung bases are unremarkable. Coronary artery calcification. There is decreased attenuation of the liver consistent with steatosis. Mild hepatomegaly. Small gallstone. Normal spleen. Normal pancreas. Normal bilateral adrenal glands. Stable focal cortical scarring in the posterior midportion of the right kidney. There is a 4.5 mm nonobstructive calculus in the lower pole calyx of the left kidney. Stable small left renal cysts. Normal visualized stomach. Normal small intestine. Normal colon. The appendix is visualized and appears normal. There is diffuse atherosclerotic calcification of the abdominal aorta and its major visceral branches, without a demonstrated aneurysm. Normal inferior vena cava. Normal retroperitoneum. There now is evidence of diffuse bladder wall thickening with increased markings in the surrounding peritoneal fat in keeping with cystitis. Radiation seeds are seen within the prostate. The prostate has decreased in size as compared to prior study. Normal abdominal wall. There are diffuse degenerative changes of the visualized lumbar spine. Stable loss of height of the T8 and T11 vertebrae. CT/Abdomen/Pelvis without Cont IMPRESSION: Diffuse bladder wall thickening with increased markings in the surrounding fat suggestive of cystitis. Nonobstructive calculus in the lower pole calyx of the left kidney. Mild hepatomegaly and diffuse fatty infiltration of the liver. Small gallstones. Electronically Signed: Joshua Limon MD at 10:25 EDT , Service support ,
== END ==
PROVIDERS: PCP Internal Medicine; Referring Provider Nurse Practitioner Adult Health; Visit Provider Nurse Practitioner Adult Health
DX: N30.21 Other chronic cystitis with hematuria (principal); N20.0 Calculus of kidney; R31.0 Gross hematuria
CPT/HCPCS: 74176; 87077; 87086; 87088; 87186

== ENCOUNTER 2021-05-19 10:41 | Day surgery (SDC) | payer BC, SELFPAY ==
[2021-03-25 09:16] VITALS: BMI 32.7
--- NOTE | 2021-05-17 08:39 | EKG12_ITS ---
Test Reason : PRE OP Blood Pressure : / mmHG Vent. Rate : 060 BPM Atrial Rate : 060 BPM P-R Int : 160 ms QRS Dur : 080 ms QT Int : 424 ms P-R-T Axes : 000 -56 012 degrees QTc Int : 424 ms Normal sinus rhythm Left anterior fascicular block Abnormal ECG Confirmed by MEÑO LOYOLA, GABRIELE ([id number]), delivery helper NISHI BRUNO ([id number]) on 05/18/2021 9:32:57 AM Referred By: Donald Hong Confirmed By:GABRIELE WILDER MD
[2021-05-17 10:01] LABS: Hematocrit 41.9 % (40-54); Hemoglobin 14.6 g/dL (13.0-16.5); Mean Corp Hgb Conc 34.8 g/dL (32-36); Mean Corpuscular Hgb 31.7 pg (27.0-32.0); Mean Corpuscular Volume 91.1 fL (80-94); Mean Platelet Vol. 9.9 fl (6.2-12.0); Platelet Count 323 K/mm3 (150-450); RBC Distribution Width CV 12.9 % (11.6-14.6); RBC Distribution Width SD 41.7 fl (35.1-43.9); White Blood Count 6.9 K/mm3 (4.4-11.0)
[2021-05-17 10:07] LABS: International Normalized Ratio 1.1; Prothrombin Time (Protime)PT. 13.2 SECONDS (11.7-14.9)
[2021-05-17 10:08] LABS: Partial Thromboplast Time 27.9 Seconds (24.1-36.2)
[2021-05-17 10:46] LABS: AST(SGOT) 36 U/L (15-37); Alanine Aminotransfer ALT/SGPT 60 U/L (16-61); Albumin, Serum 3.9 g/dL (3.2-5.0); Alkaline Phosphatase 49 U/L (45-117); Anion Gap 10 (5-15); BUN 15 mg/dL (7-18); BUN/Creat Ratio 21.1 RATIO (10-20); Bilirubin, Direct 0.18 mg/dL (0.00-0.30); Calcium,Total 9.3 mg/dL (8.5-10.1); Chloride 103 mmol/L (98-107); Creatinine, Serum 0.71 mg/dL (0.70-1.30); EST Glomerular Filtration Rate 118 mL/min (>60); Est Glom Filt Rate - Afr Amer 143 mL/min (>60); Globulin 3.7 g/dL (2.2-4.2); Glucose 161 mg/dL (74-106); Protein, Total 7.6 g/dL (6.4-8.2); Sodium Level 137 mmol/L (136-145)
[2021-05-17 11:04] LABS: Hemoglobin A1c 6.3 % (3.8-5.6)
[2021-05-19] VITALS (10 sets, daily range): BP systolic 125–151; BP diastolic 62–87; PULSE 57–65; RESP 16–20; TEMP 36.3–36.9; O2SAT 96–99; BMI 31.4
[2021-05-19] MEDS: Lactated Ringers 1,000 ML 100 ML IV ×2 (11:37→14:44)
[2021-05-19 11:46] LABS: Bedside Glucose 147 mg/dL (70-110)
--- NOTE | 2021-05-19 12:55 | PROS_PTH ---
PATIENT: MAMTA [place]IVER[place] [facility] [id number] AGE/SX: 65/M ROOM: RE05/19/[address]: Dr. Donald Hong MD : [id number] BED: DIS: 05/20/2021 SPEC #: [id number] RECD: 05/19/21 14:27 STATUS: HAYLEY REMassiel #: [id number] TIERRA: 05/19/21 12:[address]: Donald Hong DEPT: SURGICAL PATHOLOGY RECD BY: Liss Hurley ENTERED: 05/20/21 08:38 SP TYPE: TURP OTHR DR: Dr. Kay Tyler MD Tissues: Prostate, NOS Procedures: Surgery Specimen Level IV HEADER OPERATION: Cysto, TUR prostate, Olymp[facility] PRE-OP DIAGNOSIS: BPH with lower urinary tract symptoms; frequency of micturition; dysuria; chronic cystitis with hematuria TISSUE SUBMITTED: Prostate chips MICROSCOPIC DIAGNOSIS Prostate, transurethral resection: Benign nodular hyperplasia, stromal type. Tissue necrosis. Chronic prostatitis. Urothelium with mild chronic inflammation. Dystrophic microcalcifications. AM:roxi 05/21/2021 MICROSCOPIC DESCRIPTION Slides are reviewed. GROSS DESCRIPTION Received is one container labeled with the patient's name and designated prostate chips. The specimen consists of multiple irregular fragments of pink-graham, rubbery, soft tissue that in aggregate weigh 3.9 gm and measure in aggregate 5 x 3 x 0.6 cm. Multiple metallic clips are also noted in the specimen. The entire soft tissue is submitted in one cassette. Metallic clips are for gross identification only. / SJ:roxi 05/20/21 TC:3 CPT: 44023
[2021-05-19] MEDS: Cefazolin 2 GM in 0.9% Normal Saline 100 ML IV (13:12)
--- NOTE | 2021-05-19 13:52 | HP.PCM_ITS ---
HPI - General HPI Narrative MAMTA RIVERA, is a 65 M who presents for treatment of BPH with obstruction has a history of prostate cancer was treated with radioactive seeds in the past. [facility] Medical History (Updated 05/19/21 @ 13:[address] Donald Hong MD) Atypical atrial flutter Essential (primary) hypertension Excessive bleeding Gastric reflux High cholesterol History of kidney stones History of prostate cancer Hyperlipidemia Obesity ADAM (obstructive sleep apnea) Persistent atrial fibrillation Polycythemia Type 2 diabetes mellitus without complication Wears glasses Wears partial dentures Home Medications apixaban 5 mg tablet 5 mg PO BID 08/29/19 [History Last Taken 05/16/21] atorvastatin 40 mg tablet 40 mg PO QHS tab 08/29/19 [History Last Taken 05/18/21] gemfibrozil 600 mg tablet 600 mg PO BID 08/29/19 [History Last Taken 05/18/21] lisinopril 10 mg tablet 10 mg PO DAILY 08/29/19 [History Last Taken 05/19/21] lfulkhyn-tajnlitw-yrkmz acid 400 mcg-vit K 20 mcg-lycop 300 mcg tablet 1 tab PO DAILY tab 08/29/19 [History Last Taken 05/18/21] omeprazole 40 mg capsule,delayed release 40 mg PO DAILY 08/29/19 [History Last Taken 05/19/21] Januvia 25 mg PO DAILY 10/16/19 [History Last Taken 05/18/21] sotalol 120 mg tablet 120 mg PO BID 06/02/20 [History Last Taken 05/19/21] metformin 500 mg tablet,extended release 24 hr 500 mg PO TIDWMEAL tab 03/25/21 [History Last Taken 05/18/21] ciprofloxacin HCl [Cipro] 500 mg PO BID #14 tab 05/19/21 [Rx Last Taken Unknown] Allergy/AdvReac Type Severity Reaction Status Date / Time No Known Allergies Allergy Verified 05/12/21 13:53 Family History Father Hypertension Diabetes Heart disease Myocardial infarction Mother Hypertension Heart disease Brother Hypertension Diabetes Heart disease Surgical History (Updated 05/12/21 @ 14:04 by Sujata Pina) History of appendectomy History of cardioversion (11/25/19) History of loop recorder (05/28/20) History of radiofrequency ablation procedure for cardiac arrhythmia (05/28/20) Social History Smoking Status: Never smoker Tobacco: How many years used: 40 how long ago did patient quit smokin months ago alcohol intake: current alcohol intake frequency: a few times a month Alcohol type: beer substance use type: does not use caffeine: Yes Type: coffee Number of servings: 1 ROS Constitutional Constitutional: Denies chills, fever(s) or malaise Eyes Eyes: Denies blurry vision or change in vision ENT HEENT: Reports none Cardiovascular Cardiovascular: Denies chest pain or palpitations Respiratory/Chest Respiratory/Chest: Denies cough or shortness of breath with exertion Gastrointestinal Gastrointestinal: Denies abdominal pain, constipation or diarrhea Musculoskeletal Musculoskeletal: Denies back pain, joint stiffness or joint swelling Integumentary Integumentary: Denies dry skin, jaundice, lesions or rash Neurologic Neurologic: Denies confusion, syncope or weakness Psychiatric Psychiatric: Reports none; Denies anxiety or depression Endocrine Endocrinology: Denies excessive sweating, fatigue or flushing Hematologic/Lymphatic Hematologic/Lymphatic: Denies anemia, easy bleeding or easy bruising Vital Signs Vital Signs Vital Signs: 05/19/21 11:22 Temperature 97.9 F Temperature Source Temporal Pulse Rate 59 L Respiratory Rate 20 H Respiratory Pattern Normal Blood Pressure 125/84 H Blood Pressure Mean 97 Blood Pressure Source Monitor Blood Pressure Position Semi-Fowlers Blood Pressure Location Left Arm Pulse Ox 97 Oxygen Delivery Method Room Air Weight Weight: 99.5 kg Body Mass Index (BMI) 31.4 Physical Exam Const alert and oriented x3 General Appearance: cooperative HEENT normocephalic, head/scalp atraumatic, EAC's normal and TM's normal bilaterally Eyes PERRL and EOMs intact bilaterally Pupil: sluggish Neck no lymphadenopathy, supple and no JVD General: trachea midline Lymph Lymphatic: no lymphadenopathy noted, lymphedema and lymphadenopathy Resp normal respiratory effort, normal air movement and clear to auscultation bilaterally Cardio regular rate, regular rhythm and peripheral pulses 2+ throughout GI soft to palpation, non-tender and non-distended Extremity normal capillary refill and no clubbing, cyanosis or edema General Extremity: no tenderness to palpation of joints or extremities Skin no rashes or lesions noted General Skin Exam: turgor normal Lesions: no lesions Rashes: no rashes Neuro CN's II-XII intact bilaterally Speech: speech normal Motor Exam: strength 5/5 throughout; Negative for general weakness Psych thought process normal, cooperative and affect normal Appearance: appropriate Results Lab / Micro Data Result Diagrams: 05/17/21 09:06 05/17/21 09:06 Labs: Laboratory Results - last 24 hr 05/19/21 11:30 POC Glucose 147 H Assessment & Plan Assessment/Plan (1) BPH with obstruction/lower urinary tract symptoms: PLAN: Plan to proceed with a transurethral resection of the prostate
--- NOTE | 2021-05-19 13:53 | DCINST_ITS ---
Discharge Instructions Diet Discharge Diet: No restrictions Activity Discharge Activity: Return to Normal Activity and May Not Drive (while taking narcotic pain medications.) Dressing / Incision Call your doctor if you observe: Fever of 101 or Higher Follow Up Care Please Follow Up With: Donald Hong MD When: Call [phone] for an appointment Test Results: Test results from this visit will be discussed in further detail at your follow-up appointment, if applicable. Discharge Plan Admission Primary Reason for Your Visit: [place] Attending Provider: Donald Hong Primary Care Provider: Kay Tyler Instructions Patient Instructions: [facility] Home Recovery Discharge Orders/Prescriptions Prescriptions: New ciprofloxacin HCl [Cipro] 500 mg tablet 500 mg PO BID Qty: 14 RF: 0 Continued gemfibrozil [Lopid] 600 mg tablet 600 mg PO BID RF: 0 atorvastatin 40 mg tablet 40 mg PO QHS RF: 0 lisinopril 10 mg tablet 10 mg PO DAILY RF: 0 omeprazole 40 mg capsule,delayed release(DR/EC) 40 mg PO DAILY RF: 0 One-A-Day Men's Multivitamin 400-20-300 mcg tablet 1 tab PO DAILY RF: 0 metformin 500 mg tablet extended release 24 hr 500 mg PO TIDWMEAL RF: 0 sotalol 120 mg tablet 120 mg PO BID RF: 0 Januvia 25 MG tablet 25 mg PO DAILY RF: 0 Held Eliquis 5 mg tablet 5 mg PO BID RF: 0 Hold Instructions: Resume on 06/02/21. Discontinued tamsulosin [Flomax] 0.4 MG capsule 0.4 mg PO BID RF: 0 Other Ambulatory Orders: 12 Lead EKG (Routine) Location: None Selected Ordered By: Dr. Wayne Hogan Referrals / Follow Up: Kay Tyler MD [Primary Care Provider] - Donald Hong MD [STAFF PHYSICIAN] - Disposition Disposition (needs filled in before D/C Order can be placed): Home, Self Care
--- NOTE | 2021-05-19 13:53 | PCM.OPRPT ---
Report of Operation Date of Procedure: 05/19/21 Pre-Operative Diagnosis: BPH with obstruction Post-Operative Diagnosis: Same Surgery/Procedure Performed:: Transurethral section of prostate Description of Surgical Findings:: In the preoperative setting I discussed with the patient how the surgery would be done with expect afterwards. We discussed how a prostate resection is done and we discussed the risk of the surgery including, bleeding, infection, retrograde ejaculation, changes with ejaculation or intercourse,. We discussed the possibility that the resection of the prostate may not alleviate his urinary symptoms. We discussed the small risk of developing scar tissue along the urethral channel and strictures. We also discussed the chance of the prostate could grow back and he may need further surgery or treatment in the future for prostate problems. Patient was taken back to the operating room, timeout procedure was performed, he was identified and marked and placed on the operating room table. He underwent general anesthesia. He was placed in dorsolithotomy position. Penis and testicles were prepped and draped in usual sterile fashion. Went into the bladder using the visual obturator with a resectoscope. Once inside the bladder identified the right and left ureteral orifice. I then identified the prostate and the anatomy of the prostate. I marked out the area of the sphincter and the verumontanum was identified. I then proceeded with the prostate resection first resected the median lobe. And then resected the right lobe of the prostate. Then to resect the left lobe of the prostate. I then resected the apical tissue of the prostate. Made sure that there was no injury to the sphincter or the verumontanum was still intact. At the end of the resection all the chips were Ellik out of the bladder. I then identified the left and right ureteral orifice and these were confirmed to be in good position and effluxing and not injured. The resectoscope was removed, a 22 Croatian catheter was placed into the bladder on continuous irrigation. And the urine was fairly light pink color and draining normally. He was taken back to the PACU in good condition. Surgeon: Hal Type of Anesthesia: General Drains: 22 Croatian three-way catheter Admit VTE Documentation VTE Present on Admission: No VTE Mechan Device Prophylaxis: SCD's
[2021-05-19 14:41] LABS: Bedside Glucose 125 mg/dL (70-110)
[2021-05-19] MEDS: Gemfibrozil 600 MG Tablet PO (17:44)
[2021-05-19] MEDS: metFORMIN (XR) 500 MG Tablet PO (17:44)
[2021-05-19] MEDS: Lactated Ringers 1,000 ML 125 ML IV (19:12)
[2021-05-19] MEDS: Sotalol Hydrochloride 80 MG Tablet 120 MG PO (20:17)
[2021-05-19] MEDS: Atorvastatin Calcium 40 MG Tablet PO (20:17)
[2021-05-19] MEDS: Ciprofloxacin 400 MG/200 ML BAG 200 MG IV (21:02)
[2021-05-20 03:58] VITALS: BP 134/68; PULSE 69; RESP 18; TEMP 36.6; O2SAT 98
[2021-05-20] MEDS: Lactated Ringers 1,000 ML 125 ML IV (04:08)
[2021-05-20] MEDS: Gemfibrozil 600 MG Tablet PO (06:22)
[2021-05-20 09:15] VITALS: PULSE 76
[2021-05-20] MEDS: Sotalol Hydrochloride 80 MG Tablet 120 MG PO (09:16)
[2021-05-20] MEDS: metFORMIN (XR) 500 MG Tablet PO (09:16)
[2021-05-20] MEDS: Multivitamins,Ther W-Minerals Tablet 1 TABLET PO (09:16)
[2021-05-20] MEDS: Pantoprazole Sodium 40 MG Tablet PO (09:17)
[2021-05-20] MEDS: Ciprofloxacin 400 MG/200 ML BAG 200 MG IV (09:17)
[2021-05-20] MEDS: LINAGLIPTIN 5 MG TABLET PO (09:18)
[2021-05-20] MEDS: Lisinopril 10 MG Tablet PO (09:18)
--- NOTE | 2021-05-20 10:48 | PHA.DC.MC ---
Pharmacy Service has performed discharge medication reconciliation and counseling for this patient. The patient was counseled on the following discharge medications and changes in medications for homegoing were reviewed. 1. CIPRO The Reason for Use, instructions for use, and potential side effects were reviewed for all new medications. The patient's questions regarding all of their medications were answered. The patient was able to verbally demonstrate an understanding of their discharge medications. Home Medications apixaban 5 mg tablet 5 mg PO BID 08/29/19 atorvastatin 40 mg tablet 40 mg PO QHS tab 08/29/19 gemfibrozil 600 mg tablet 600 mg PO BID 08/29/19 lisinopril 10 mg tablet 10 mg PO DAILY 08/29/19 jpuwxlky-migaapou-asgwi acid 400 mcg-vit K 20 mcg-lycop 300 mcg tablet 1 tab PO DAILY tab 08/29/19 omeprazole 40 mg capsule,delayed release 40 mg PO DAILY 08/29/19 Januvia 25 mg PO DAILY 10/16/19 sotalol 120 mg tablet 120 mg PO BID 06/02/20 metformin 500 mg tablet,extended release 24 hr 500 mg PO TIDWMEAL tab 03/25/21 ciprofloxacin HCl [Cipro] 500 mg PO BID #14 tab 05/19/21 The patient's discharge medication list was reviewed for discrepancies and discrepancies were resolved.
[2021-05-20 10:50] VITALS: BP 125/73; PULSE 67; RESP 18; TEMP 36.6; O2SAT 97
== END 2021-05-20 12:24 | disposition home or self-care (01) ==
LOC: SDC 10:41 → AC 10:42 → MS3 15:47
PROVIDERS: Anesthesiology; PCP Internal Medicine; Referring Provider Urology; Visit Provider Urology
PROC: (CPT 52601; principal; 2021-05-19 12:45)
DX: N40.1 Benign prostatic hyperplasia with lower urinary tract symptoms (principal); N13.8 Other obstructive and reflux uropathy; N32.89 Other specified disorders of bladder; Z85.46 Personal history of malignant neoplasm of prostate; I48.19 Other persistent atrial fibrillation; I48.4 Atypical atrial flutter; I10 Essential (primary) hypertension; E78.00 Pure hypercholesterolemia, unspecified; K21.9 Gastro-esophageal reflux disease without esophagitis; D75.1 Secondary polycythemia; E11.9 Type 2 diabetes mellitus without complications; E78.5 Hyperlipidemia, unspecified; E66.9 Obesity, unspecified; Z68.31 Body mass index [BMI] 31.0-31.9, adult; G47.33 Obstructive sleep apnea (adult) (pediatric); Z79.01 Long term (current) use of anticoagulants; Z79.84 Long term (current) use of oral hypoglycemic drugs; Z79.899 Other long term (current) drug therapy; Z87.891 Personal history of nicotine dependence; Z87.442 Personal history of urinary calculi
CPT/HCPCS: 52601; 36415; 80048; 80076; 82962; 83036; 85027; 85610; 85730; 88305; 93005; J7120; J0744

== ENCOUNTER 2021-05-21 15:43 | Emergency (ER) | payer BC, SELFPAY ==
[2021-05-19 11:22] VITALS: BMI 31.4
[2021-05-21 15:44] VITALS: BP 156/88; PULSE 63; RESP 15; TEMP 36.3; O2SAT 98; BMI 31.1
--- NOTE | 2021-05-21 16:27 | EDS_ITS ---
HPI History of Present Illness Chief Complaint: Boss C/O Narrative Narrative: 65-year-old male presenting with Boss catheter that is clogged. Patient states that he had urethral dilatation this week. He attempted to go home without a Boss catheter but was unable to void and the Boss catheter was placed. This morning he states it seemed to be clogged and he was able to adjust it and got it running. Again clogged off this afternoon. He states he had some mild suprapubic pressure but after relieving it it is gone. He has not had any flank pain. He denies fever or chills. Currently on Cipro for prophylaxis. [facility] Medical History Atypical atrial flutter Essential (primary) hypertension Excessive bleeding Gastric reflux High cholesterol History of kidney stones History of prostate cancer Hyperlipidemia Obesity ADAM (obstructive sleep apnea) Persistent atrial fibrillation Polycythemia Type 2 diabetes mellitus without complication Wears glasses Wears partial dentures Home Medications apixaban 5 mg tablet 5 mg PO BID 08/29/19 [History Last Taken 05/16/21] atorvastatin 40 mg tablet 40 mg PO QHS tab 08/29/19 [History Last Taken 05/18/21] gemfibrozil 600 mg tablet 600 mg PO BID 08/29/19 [History Last Taken 05/18/21] lisinopril 10 mg tablet 10 mg PO DAILY 08/29/19 [History Last Taken 05/19/21] zrjmbcvz-tssehobw-xgnoj acid 400 mcg-vit K 20 mcg-lycop 300 mcg tablet 1 tab PO DAILY tab 08/29/19 [History Last Taken 05/18/21] omeprazole 40 mg capsule,delayed release 40 mg PO DAILY 08/29/19 [History Last Taken 05/19/21] Januvia 25 mg PO DAILY 10/16/19 [History Last Taken 05/18/21] sotalol 120 mg tablet 120 mg PO BID 06/02/20 [History Last Taken 05/19/21] metformin 500 mg tablet,extended release 24 hr 500 mg PO TIDWMEAL tab 03/25/21 [History Last Taken 05/18/21] ciprofloxacin HCl [Cipro] 500 mg PO BID #14 tab 05/19/21 [Rx Last Taken Unknown] Allergy/AdvReac Type Severity Reaction Status Date / Time No Known Allergies Allergy Verified 05/12/21 13:53 Family History Father Hypertension Diabetes Heart disease Myocardial infarction Mother Hypertension Heart disease Brother Hypertension Diabetes Heart disease Surgical History History of appendectomy History of cardioversion (11/25/19) History of loop recorder (05/28/20) History of radiofrequency ablation procedure for cardiac arrhythmia (05/28/20) Social History Smoking Status: Never smoker Tobacco: How many years used: 40 how long ago did patient quit smokin months ago alcohol intake: current alcohol intake frequency: a few times a month Alcohol type: beer substance use type: does not use caffeine: Yes Type: coffee Number of servings: 1 ROS ROS ED Constitutional Constitutional ED: Denies fever(s) Eyes Eyes: Denies blurry vision or change in vision ENT ENT ED: Denies ear pain or rhinorrhea Cardiovascular Cardiovascular: Denies chest pain or palpitations Respiratory/Chest Respiratory/Chest: Denies cough or dyspnea Gastrointestinal Gastrointestinal: Reports other Details: Mild suprapubic pressure Genitourinary Genitourinary ED: Reports other Details: Clogged Boss catheter ; Denies dysuria Musculoskeletal Musculoskeletal: Denies back pain or myalgias Integumentary Denies abscess Neurologic Neurologic: Denies headache(s) or weakness Psychiatric Psychiatric: Denies anxiety or depression EXAM Physical Exam Const Vital Signs: 05/21/21 15:44 Temperature 97.3 F L Temperature Source Temporal Pulse Rate 63 Respiratory Rate 15 Blood Pressure 156/88 H Blood Pressure Mean 110 Pulse Ox 98 Oxygen Delivery Method Room Air Positive well nourished General Appearance ED: NAD HEENT normocephalic and atraumatic Resp normal respiratory effort and clear to auscultation bilaterally Cardio regular rate and regular rhythm GI non-tender and non-distended Palpation: soft Penis: normal penis Prostate: other (Boss catheter in place and draining yellow urine.) Back/Spine no CVA tenderness Neuro oriented x3 Sensorium / Orientation: alert Psych mental status grossly normal Skin Lesions: no lesions Rashes: no rashes MDM MDM MDM Narrative Medical decision making narrative: Patient presenting with clogged Boss catheter. This was irrigated and is now flowing. He does not have any flank pain and he feels otherwise well. I do not think he needs lab work at this time. Patient will be discharged home to follow-up with Dr. Hong as scheduled. He is given return precautions. Impression: 1 clogged Boss catheter?resolved Discharge Plan Triage Chief Complaint: Boss C/O ED Provider: Travon Dumont Dx/Rx/DC Orders Instructions: ED Boss Catheter, Care Prescriptions: No Action Eliquis 5 mg tablet 5 mg PO BID RF: 0 Hold Instructions: Resume on 06/02/21. gemfibrozil [Lopid] 600 mg tablet 600 mg PO BID RF: 0 atorvastatin 40 mg tablet 40 mg PO QHS RF: 0 lisinopril 10 mg tablet 10 mg PO DAILY RF: 0 omeprazole 40 mg capsule,delayed release(DR/EC) 40 mg PO DAILY RF: 0 One-A-Day Men's Multivitamin 400-20-300 mcg tablet 1 tab PO DAILY RF: 0 metformin 500 mg tablet extended release 24 hr 500 mg PO TIDWMEAL RF: 0 sotalol 120 mg tablet 120 mg PO BID RF: 0 Januvia 25 MG tablet 25 mg PO DAILY RF: 0 ciprofloxacin HCl [Cipro] 500 mg tablet 500 mg PO BID Qty: 14 RF: 0 Primary Care Provider: Kay Tyler Referrals: Kay Tyler MD [Primary Care Provider] - Donald Hong MD [STAFF PHYSICIAN] - As Needed Disposition Disposition: Home, Self Care
== END 2021-05-21 16:59 | disposition home or self-care (01) ==
LOC: ED 16:31
PROVIDERS: Emergency Provider Student in an Organized Health Care Education/Training Program; PCP Internal Medicine
DX: T83.098A Other mechanical complication of other urinary catheter, initial encounter (principal); I48.19 Other persistent atrial fibrillation; I48.4 Atypical atrial flutter; I10 Essential (primary) hypertension; E78.5 Hyperlipidemia, unspecified; K21.9 Gastro-esophageal reflux disease without esophagitis; G47.33 Obstructive sleep apnea (adult) (pediatric); E66.9 Obesity, unspecified; Z79.84 Long term (current) use of oral hypoglycemic drugs; Z79.01 Long term (current) use of anticoagulants; Z79.899 Other long term (current) drug therapy; Z87.442 Personal history of urinary calculi; Z85.46 Personal history of malignant neoplasm of prostate; E11.9 Type 2 diabetes mellitus without complications; Z87.891 Personal history of nicotine dependence
CPT/HCPCS: 99282

== ENCOUNTER → 2021-06-21 | Outpatient (CLI) | payer BC, SELFPAY | END | disposition home or self-care (01) | LOC: LABSPEC 10:56 | PROVIDERS: PCP Internal Medicine; Referring Provider Urology; Visit Provider Urology | DX: N30.21 Other chronic cystitis with hematuria (principal) | CPT/HCPCS: 87077; 87086; 87088; 87186 ==

== ENCOUNTER → 2021-10-07 09:31 | Outpatient (CLI) | payer MEDICARE, SELFPAY | PROVIDERS: Urology; PCP Internal Medicine; Referring Provider Internal Medicine; Visit Provider Internal Medicine | DX: C61 Malignant neoplasm of prostate (principal) | CPT/HCPCS: 36415; 84153 ==

== ENCOUNTER 2021-12-27 08:42 | Outpatient (CLI) | payer MEDICARE, SELFPAY | END 2021-12-27 23:59 | disposition short-term general hospital (02) | LOC: LAB 08:43 | PROVIDERS: PCP Internal Medicine; Visit Provider Urology | DX: N40.1 Benign prostatic hyperplasia with lower urinary tract symptoms (principal) | CPT/HCPCS: 87077; 87086; 87088; 87186 ==

== ENCOUNTER 2022-01-10 16:30 | Outpatient (CLI) | payer MEDICARE, SELFPAY | END 2022-01-10 23:59 | disposition home or self-care (01) | LOC: LABSPEC 16:31 | PROVIDERS: PCP Internal Medicine; Visit Provider Urology | DX: R31.29 Other microscopic hematuria (principal) | CPT/HCPCS: 87086; 87088 ==

== ENCOUNTER 2022-02-07 16:41 | Outpatient (CLI) | payer MEDICARE, SELFPAY | END 2022-02-07 23:59 | disposition home or self-care (01) | LOC: LABSPEC 16:42 | PROVIDERS: PCP Internal Medicine; Referring Provider Urology; Visit Provider Urology | DX: N30.01 Acute cystitis with hematuria (principal) | CPT/HCPCS: 87077; 87086; 87088; 87186 ==

== ENCOUNTER → 2022-07-20 | Outpatient (CLI) | payer MEDICARE, SELFPAY ==
[2022-07-20 09:39] LABS: PSA,Total- Diagnostic 3.21 ng/mL (0.0-4.0)
== END | disposition home or self-care (01) ==
LOC: LAB 08:14
PROVIDERS: PCP Internal Medicine; Visit Provider Urology
DX: R97.20 Elevated prostate specific antigen [PSA] (principal)
CPT/HCPCS: 36415; 84153

== ENCOUNTER → 2023-08-02 | Outpatient (CLI) | payer MEDICARE, SELFPAY | END | disposition home or self-care (01) | PROVIDERS: PCP Internal Medicine; Referring Provider Registered Nurse; Visit Provider Registered Nurse | DX: C61 Malignant neoplasm of prostate (principal) | CPT/HCPCS: 36415; 84153 ==

== ENCOUNTER → 2023-08-15 | Outpatient (CLI) | payer MEDICARE, SELFPAY ==
--- NOTE | 2023-08-15 09:16 | NM_ITS ---
CLINICAL: 67-year-old male with history of primary prostate carcinoma. WHOLE BODY 99m Tc MDP RADIONUCLIDE BONE SCINTIGRAPHY COMPARISON: Previous whole body bone scintigraphy report dated 08/29/2019 FINDINGS: Following the intravenous administration of 25.0 mCi of 99m Tc MDP, whole body bone images reveal: 1. Increased radiopharmaceutical concentration is defined in the lower cervical spine posteriorly on the right, the eighth through 12th thoracic vertebra posteriorly on the right, the acromioclavicular compartments of both shoulders, the sternoclavicular compartment of the left shoulder, the medial tibial compartment of the right knee, the patellofemoral compartments of both knees (L > R). 2. The remaining skeletal structures are scintigraphically unremarkable with normal-appearing renal images and urinary bladder activity identified. NM/Bone Scan Whole Body IMPRESSION: 1. The increase in tracer distribution defined in the cervical and lumbar spine, bilateral shoulder and knee articulations is most consistent with degenerative arthrosis. 2. Overall compared to the previous whole body bone scintigraphy study dated 08/29/2019, there is no significant interval change. There is no scintigraphic evidence of diffuse axial skeletal metastatic disease on the current examination. Electronically Signed: Chinmay Brown DO at 22:51 EDT ,
== END | disposition home or self-care (01) ==
LOC: NM 09:13
PROVIDERS: PCP Internal Medicine; Referring Provider Urology; Visit Provider Urology
DX: C61 Malignant neoplasm of prostate (principal); R97.21 Rising PSA following treatment for malignant neoplasm of prostate
CPT/HCPCS: 78306; A9503

== ENCOUNTER → 2023-08-21 | Outpatient (CLI) | payer MEDICARE, SELFPAY ==
--- NOTE | 2023-08-21 08:06 | CT_ITS ---
STUDY: CT ABDOMEN AND PELVIS WITH CONTRAST REASON FOR EXAM: Male, 67 years old. PROSTATE CANCER. Rising PSA. RADIATION DOSAGE (If Supplied By Facility): CTDIvol = ( 17.44 ) mGy, DLP = ( 1128.22 ) mGycm TECHNIQUE: Transaxial images were obtained from the dome of the diaphragm to the symphysis pubis without oral contrast. IV 100mL Isovue-300 was administered. Sagittal and coronal images were reconstructed. Individualized dose optimization techniques were used for this CT. COMPARISON: Comparison is made with prior study dated April 08, 2021. FINDINGS: The visualized lung bases are unremarkable. Coronary artery calcification. There is decreased attenuation of the liver consistent with steatosis. Contracted gallbladder. Small gallstones are seen within it. Normal spleen. Normal pancreas. Normal bilateral adrenal glands. Stable cortical scarring in the posterior midportion of the right kidney. Stable punctate calculus in the lower pole calyx of the left kidney. Normal left kidney. Diffuse gastric wall thickening along both the greater and lesser curvature of the stomach although no contrast is seen within the stomach at this time. Normal small intestine. Normal colon. The patient is status post appendectomy. There is diffuse atherosclerotic calcification of the abdominal aorta, without a demonstrated aneurysm. Normal inferior vena cava. Normal retroperitoneum. Mild degree of diffuse bladder wall thickening. The prostate is not enlarged. Multiple radioactive metallic density is seen within the prostate. There is a left-sided inguinal hernia containing adipose tissue. There are degenerative changes of the visualized lumbar spine. Stable loss of height of the T8 and T11 vertebrae. CT/Abdomen/Pelvis W IV Cont ONLY IMPRESSION: Fatty infiltration of the liver. Multiple small gallstones. Radiation seeds are seen within the prostate. Diffuse thickening of the gastric wall. The stomach is not adequately distended with oral contrast. Electronically Signed: Joshua Limon MD at 15:35 EDT ,
[2023-08-21 08:47] LABS: EGFR FINGERSTICK > 60.0000 mL/min (>60)
== END | disposition home or self-care (01) ==
LOC: CT 07:57
PROVIDERS: PCP Internal Medicine; Referring Provider Urology; Visit Provider Urology
DX: C61 Malignant neoplasm of prostate (principal); R97.20 Elevated prostate specific antigen [PSA]; R97.21 Rising PSA following treatment for malignant neoplasm of prostate
CPT/HCPCS: 74177; Q9967

== ENCOUNTER → 2023-12-05 | Outpatient (CLI) | payer MEDICARE, SELFPAY ==
--- NOTE | 2023-12-05 10:00 | PET_ITS ---
EXAMINATION: F18 PSMA PET/CT INDICATIONS: A 68-year-old male with a history of primary prostate carcinoma presenting for a restaging examination. COMPARISON: None available INDEX LESION SIZE SUV PROMISE SCORE INTERPRETATION Prostate gland 25.6 mm 20.15 2 Fulfills quantitative criteria for viable neoplasm. TECHNIQUE: Following the intravenous administration of 9.9 mCi of F18 PSMA-Pylarify via the left hand, image acquisitions of the head, neck, chest, abdomen and pelvis to the level of the mid thigh at 73 minutes post-tracer distribution reveal: The examination was interpreted utilizing the EANM (Lesly et al, Journal of Nuclear Medicine Molecular Imaging 44:1622, 2017) and PROMISE (Zacarias et al, Journal of Nuclear Medicine 59:469, 2018) interpretive criteria. PSMA expression score-PROMISE criteria High (3): SUV equal to and/or greater than parotid-salivary glands, Intermediate (2): SUV equal to or greater than liver, Low (1): SUV equal and/or less than blood pool. PAROTID GLANDS SUV: 41.33 NORMAL LIVER PARENCHYMA: 7.8 BLOOD POOL: 3.7 HEIGHT: 70 inches. WEIGHT: 215 lbs. FINDINGS: Head/Neck: Symmetric radiopharmaceutical concentration is defined in the submandibular and parotid glands. There is physiologic activity demonstrated in the nasal cavity. There is no evidence of abnormal increased tracer uptake within the context of the cranial vault. CHEST: Linear uptake is defined in the proximal-mid esophagus most consistent with physiologic tracer uptake. There is no evidence of abnormal increased radiopharmaceutical within the context of the bilateral hemithorax pulmonary parenchyma, mediastinal structures and right-left thoracic perihilum. Pertinent chest CT findings are as follows. Atherosclerotic calcification is defined in the thoracic aorta without evidence of dilatation, aneurysm formation. Coronary arterial calcification is observed. Scattered mediastinal and axillary soft tissue densities are ametabolic. No parenchymal densities-nodules defined in the right and left hemithorax with quantitatively significant increased FDG uptake. Abdomen/Pelvis: Enhanced radiopharmaceutical concentration is noted in the lower pelvis caudal and posterior to the urinary bladder. The calculated maximum standard uptake value is 20.15. The PROMISE score is 2. The maximum axial diameter of the metabolic, morphologic abnormality is 25.6 mm. Abdomen and pelvis CT findings are as follows. There is atherosclerotic calcification defined in the abdominal aorta without evidence of dilatation-aneurysm formation. Pelvic arterial calcification is observed. Bilateral fat containing inguinal hernias are noted. Subcentimeter inguinal soft tissue densities with fatty hilus are ametabolic. Fat containing periumbilical hernias are noted. Skeletal: Degenerative changes defined in the cervical, thoracic and lumbar spine demonstrate no evidence of glucose hypermetabolism. PET/PET/CT Tumor WB Subs IMPRESSION: 1. ABNORMAL EXAMINATION INDICATIVE OF MALIGNANT-VIABLE NEOPLASM. 2. Increased radiopharmaceutical concentration defined in the prostate gland fulfills quantitative criteria for malignant transformation. Electronic Signature Chinmay Brown D.O. Accurate Quantification of SUVs and standardized PROMISE scores for this report are calculated using the exclusive [employer], ([place] Patent No. [id number] [phone] [place] patent [phone] ). Standardization and correction of the FDG SUV metric exclusively available with [employer] intellectual property, allow for vendor non-specific objective quantitative sequential FDG PET-CT comparison and otherwise unobtainable optimization of the sensitivity and specificity of the examination. [email or web address] Electronically Signed: Chinmay Brown DO at 21:25 EST ,
== END | disposition home or self-care (01) ==
PROVIDERS: PCP Internal Medicine; Referring Provider Urology; Visit Provider Urology
DX: C61 Malignant neoplasm of prostate (principal); R97.21 Rising PSA following treatment for malignant neoplasm of prostate
CPT/HCPCS: 78816; A9595

== ENCOUNTER → 2024-03-11 | Outpatient (CLI) | payer MEDICARE, SELFPAY ==
[2024-03-11 09:23] LABS: AST(SGOT) 80 U/L (15-37); Alanine Aminotransfer ALT/SGPT 101 U/L (16-61); Albumin, Serum 3.8 g/dL (3.2-5.0); Alkaline Phosphatase 46 U/L (45-117); Anion Gap 9 (5-15); BUN 20 mg/dL (7-18); BUN/Creat Ratio 27.6 RATIO (10-20); Calcium,Total 9.5 mg/dL (8.5-10.1); Chloride 108 mmol/L (98-107); Creatinine, Serum 0.72 mg/dL (0.70-1.30); EST Glomerular Filtration Rate 115 mL/min (>60); Est Glom Filt Rate - Afr Amer 139 mL/min (>60); Globulin 3.7 g/dL (2.2-4.2); Glucose 172 mg/dL (74-106); PSA,Total- Diagnostic 0.17 ng/mL (0.0-4.0); Potassium 3.9 mmol/L (3.5-5.1); Protein, Total 7.5 g/dL (6.4-8.2); Sodium Level 137 mmol/L (136-145)
[2024-03-11 09:31] LABS: Hemoglobin A1c 6.2 % (3.8-5.6)
== END | disposition home or self-care (01) ==
LOC: LAB 07:59
PROVIDERS: PCP Internal Medicine; Referring Provider Internal Medicine; Visit Provider Internal Medicine
DX: C61 Malignant neoplasm of prostate (principal); E11.65 Type 2 diabetes mellitus with hyperglycemia; E11.59 Type 2 diabetes mellitus with other circulatory complications; I15.2 Hypertension secondary to endocrine disorders
CPT/HCPCS: 36415; 80053; 83036; 84153

== ENCOUNTER → 2024-04-30 | Outpatient (CLI) | payer MEDICARE, SELFPAY ==
--- NOTE | 2024-04-30 08:34 | ECHOD_ITS ---
Reason For Study: ADAM Procedure This was a 2D Doppler, Color Flow transthoracic echocardiogram. The study was technically difficult. Exam performed in department. Left Ventricle Normal LV size. Left ventricular systolic function is normal. The estimated ejection fraction is 65 %. No regional wall motion abnormalities noted. Right Ventricle Normal right ventricle. Atria Normal left atrium. Normal right atrium. Mitral Valve Normal mitral valve. Tricuspid Valve Normal tricuspid valve. Mild (1+) tricuspid valve insufficiency. Pulmonary artery systolic pressure is 30 mmHg. Pulmonic Valve Normal pulmonic valve. Great Vessels Normal aortic root. The pulmonary artery is normal size. Normal inferior vena cava. Pericardium/Pleural No pericardial effusion. MMode/2D Measurements & Calculations LVIDd: 4.3 cm IVSd: 1.1 cm LVOT diam: 2.1 cm LVIDs: 2.5 cm LVPWd: 1.0 cm LVOT area: 3.6 cm2 RVDd: 3.7 cm FS: 42.2 % Ao root diam: 3.5 cm LAV(MOD-bp): 38.1 ml LVAd ap4: 22.3 cm2 LAV(MOD-bp) Indexed: 17.7 ml/m2 LVLd ap4: 7.6 cm LAV(MOD-sp2): 32.8 ml EDV(MOD-sp4): 54.2 ml LAV(MOD-sp4): 43.6 ml EDV(sp4-el): 55.5 ml LVAs ap4: 11.0 cm2 LVLs ap4: 6.5 cm ESV(MOD-sp4): 16.2 ml ESV(sp4-el): 15.8 ml EF(MOD-sp4): 70.0 % EF(sp4-el): 71.5 % SV(MOD-sp4): 37.9 ml SV(MOD-sp2): 30.0 ml LVAd ap2: 19.7 cm2 LVLd ap2: 7.2 cm EDV(MOD-sp2): 44.5 ml EDV(sp2-el): 45.9 ml LVAs ap2: 10.1 cm2 LVLs ap2: 6.1 cm ESV(MOD-sp2): 14.5 ml ESV(sp2-el): 14.1 ml EF(MOD-sp2): 67.5 % SV(sp4-el): 39.7 ml LA A4 area: 17.4 cm2 LA dimension(2D): 4.0 cm TAPSE: 2.2 cm RA A4 area: 10.9 cm2 Time Measurements MV dec time: 0.18 sec Doppler Measurements & Calculations MV E max stanislaw: 109.3 cm/sec Lat Peak E' Stanislaw: 9.6 cm/sec Med Peak E' Stanislaw: 7.6 cm/sec MV A max stanislaw: 45.0 cm/sec E/E' lat: 11.4 E/E' med: 14.4 MV E/A: 2.4 MV dec slope: 623.5 cm/sec2 Ao V2 max: 147.1 cm/sec LV V1 max: 84.8 cm/sec Ao max P.6 mmHg LV V1 max P.9 mmHg Ao V2 mean: 93.4 cm/sec LV V1 mean P.2 mmHg Ao mean P.0 mmHg LV V1 mean: 51.1 cm/sec Ao V2 VTI: 28.0 cm LV V1 VTI: 17.4 cm AV (velocity ratio): 0.62 ANTONIA(I,D): 2.2 cm2 ANTONIA(V,D): 2.0 cm2 SV(LVOT): 61.7 ml PA V2 max: 109.4 cm/sec TR max stanislaw: 253.4 cm/sec PA max PG (full): 2.2 mmHg TR max P.7 mmHg ECHO/Echo Complete Interpretation Summary Normal LV size. Left ventricular systolic function is normal. The estimated ejection fraction is 65 %. Pulmonary artery systolic pressure is 30 mmHg. Ordering Physician: Leo Roper Referring Physician: Leo Roper MD Performed By: Emely Ernandez RDCS
== END | disposition home or self-care (01) ==
LOC: CVS 08:34
PROVIDERS: PCP Internal Medicine; Referring Provider Internal Medicine Cardiovascular Disease; Visit Provider Internal Medicine Cardiovascular Disease
DX: G47.33 Obstructive sleep apnea (adult) (pediatric) (principal)
CPT/HCPCS: 93306

== ENCOUNTER → 2024-09-16 | Outpatient (CLI) | payer MEDICARE, SELFPAY ==
[2024-09-16 10:18] LABS: PSA,Total- Diagnostic 0.88 ng/mL (0.0-4.0)
== END | disposition home or self-care (01) ==
LOC: LAB 09:40
PROVIDERS: PCP Internal Medicine; Referring Provider Nurse Practitioner; Visit Provider Nurse Practitioner
DX: C61 Malignant neoplasm of prostate (principal)
CPT/HCPCS: 36415; 84153

== ENCOUNTER → 2025-03-21 | Outpatient (CLI) | payer MEDICARE, SELFPAY ==
[2025-03-21 09:43] LABS: PSA,Total- Diagnostic 0.37 ng/mL (0.00-4.00)
== END | disposition home or self-care (01) ==
PROVIDERS: PCP Internal Medicine; Referring Provider Nurse Practitioner; Visit Provider Nurse Practitioner
DX: C61 Malignant neoplasm of prostate (principal)
CPT/HCPCS: 36415; 84153